=== PATIENT | male | born 1950 | race Caucasian/White ===

== ENCOUNTER 2017-07-27 03:12 | Inpatient (IN) | payer MEDICARE, MEDICAID ==
[2017-07-27] VITALS (8 sets, daily range): BP systolic 114–154; BP diastolic 78–93
[~2017-07-27] VITALS: Ht 180.3 cm; Wt 77.1 kg
[2017-07-27] MEDS ORDERED: PLAVIX75 MG ORAL (03:33)
[2017-07-27] MEDS ORDERED: METOPROLOL TART25 MG ORAL (03:33)
[2017-07-27] MEDS ORDERED: TYLENOL650 MG/20. ORAL ×2 (03:33)
[2017-07-27] MEDS ORDERED: TRAZODONE HCL150 MG ORAL (03:33)
[2017-07-27] MEDS ORDERED: WELLBUTRIN XL150 M3 ORAL (03:33)
[2017-07-27] MEDS ORDERED: DEPAKOTE250 MG PO (03:33)
[2017-07-27] MEDS ORDERED: RISPERIDONE2 MG/2 ML PO (03:33)
[2017-07-27] MEDS ORDERED: PANTOPRAZOLE SO40 MG ORAL (03:33)
[2017-07-27] MEDS ORDERED: AMLODIPINE BESYL5 MG ORAL (03:33)
[2017-07-27] MEDS ORDERED: ARICEPT10 MG ORAL (03:33)
[2017-07-27] MEDS ORDERED: FUROSEMIDE20 M1 ORAL (03:33)
[2017-07-27] MEDS ORDERED: COLACE250 MG ORAL (03:33)
[2017-07-27 04:02] LABS: BASOPHILS % (AUTO) 1.1 % (0.0-2.0); EOSINOPHILS % (AUTO) 0.3 % (0.0-3.0); LYMPHOCYTES % (AUTO) 35.9 % (20.0-45.0); MEAN CORPUSCULAR HGB CONC 32.6 G/DL (32.0-36.0); MEAN CORPUSCULAR VOLUME 92 FL (80-99); MEAN PLATELET VOLUME 6.9 FL (6.5-10.1); NEUTROPHILS % (AUTO) 45.7 % (45.0-75.0); PLATELET COUNT 168 K/UL (150-450); RED BLOOD COUNT 4.43 M/UL (4.70-6.10); RED CELL DISTRIBUTION WIDTH 12.6 % (11.6-14.8); WHITE BLOOD COUNT 4.8 K/UL (4.8-10.8)
[2017-07-27 04:12] LABS: ANION GAP 7 mmol/L (5-15); CALCIUM 8.6 MG/DL (8.5-10.1); CARBON DIOXIDE 31 MMOL/L (21-32); CHLORIDE 104 MMOL/L (98-107); CREATININE 0.9 MG/DL (0.55-1.30); GLOMERULAR FILTRATION RATE > 60 mL/min (>60); POTASSIUM 3.5 MMOL/L (3.5-5.1); SODIUM 142 MMOL/L (136-145)
[2017-07-27 04:22] LABS: APPEARANCE,URINE CLEAR; KETONES,URINE NEGATIVE (NEGATIVE); LEUKOCYTE ESTERASE ,URINE NEGATIVE (NEGATIVE); NITRITE,URINE NEGATIVE (NEGATIVE); PH,URINE 6.5 (4.5-8.0); PROTEIN,URINE NEGATIVE (NEGATIVE); UROBILINOGEN,URINE NORMAL MG/DL (0.0-1.0)
[2017-07-27 04:27] LABS: ALANINE AMINOTRANSFERASE 24 U/L (12-78); ALBUMIN/GLOBULIN RATIO 0.7 (1.0-2.7); ASPARTATE AMINO TRANSFERASE 27 U/L (15-37); CKMB 1.3 NG/ML (0.0-3.6); TOTAL PROTEIN 7.3 G/DL (6.4-8.2)
--- NOTE | 2017-07-27 04:38 | Emergency Room Report ---
History of Present Illness General Chief Complaint: Generalized Weakness Source: EMS Present Illness HPI 67-year-old male sent [facility] for evaluation for generalized weakness , cough and fever Was given tylenol prior to arrival Patient denies known medical problems however review of paperwork indicates history of COPD, heart failure and high blood pressure, schizophrenia, dementia Patient otherwise not providing much history of present illness Allergies: Coded Allergies: No Known Allergies (Unverified , 07/27/17) Patient History Past Medical History: HTN, CHF, COPD Past Surgical History: unable to obtain Pertinent Family History: unable to obtain Social History: Denies: smoking, alcohol use, drug use Immunizations: UTD Reviewed Nursing Documentation: PMH: Agreed, PSxH: Agreed Review of Systems All Other Systems: limited - Dementia Physical Exam Vital Signs Date Time Temp Pulse Resp B/P (MAP) Pulse Ox O2 Delivery O2 Flow Rate FiO2 07/27/17 03:13 98.2 64 20 129/84 97 Nasal Cannula 3.0 Sp02 EP Interpretation: reviewed, normal General Appearance: normal inspection, well appearing, no apparent distress, alert, GCS 15, non-toxic, other - Calm cooperative, well appering, Chronically Ill Head: normocephalic, atraumatic Eyes: bilateral eye PERRL, bilateral eye EOMI ENT: normal ENT inspection, hearing grossly normal, normal pharynx, no angioedema, normal voice, TMs + canals normal, uvula midline, moist mucus membranes Neck: normal inspection, full range of motion, supple, thyroid normal, no meningismus, no bony tend Respiratory: normal inspection, lungs clear, normal breath sounds, no rhonchi, no respiratory distress, no retraction, no accessory muscle use, no wheezing, speaking full sentences Cardiovascular #1: regular rate, rhythm, no edema, no JVD, normal capillary refill Gastrointestinal: normal inspection, normal bowel sounds, non tender, soft, no mass, no peritonitis, non-distended, no guarding, no hernia, no pulsatile mass Genitourinary: no CVA tenderness Musculoskeletal: normal inspection, back normal, normal range of motion, no calf tenderness, pelvis stable, Dev's Sign negative Neurologic: normal inspection, alert, responsive, 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 I attest that this information is true, accurate and complete to the best of my knowledge. I understand that any falsification, omission, or concealment of material fact may subject me to administrative, civil, or criminal liability. This patient warrants hospital admission for extreme of age and has a condition that cannot be treated as outpatient. Diagnostic Impression: Primary Impression: Episode of generalized weakness ER Course Patient afebrile here No leuks on labs CXR and UA negative for infection No metabolic abnormalities ECG shows RBBB, troponin WNL Not septic appearing Med/surg admission Dr Romano for Dr Das at 437am EKG Diagnostic Results Rate: normal Rhythm: NSR ST Segments: no acute changes ASA given to the pt in ED: No Chest X-Ray Diagnostic Results Chest X-Ray Diagnostic Results : Chest X-Ray Ordered: Yes # of Views/Limited/Complete: 1 View Indication: Other - Weakness EP Interpretation: Yes Interpretation: no consolidation, no effusion, no pneumothorax, no acute cardiopulmonary disease Impression: No acute disease Electronically Signed by: Dr Lucita Espitia MD Last Vital Signs Date Time Temp Pulse Resp B/P (MAP) Pulse Ox O2 Delivery O2 Flow Rate FiO2 07/27/17 03:31 98.2 64 20 129/84 97 Nasal Cannula 3.0 Status: improved Disposition: ADMITTED INPATIENT LUCITA ESPITIA M.D. Jul 27, 2017 04:38
[2017-07-27] MEDS ORDERED: Metoprolol 25mg tab ORAL SCH (09:00)
[2017-07-27] MEDS: Benztropine 1mg tab ORAL SCH ×2 (10:14→18:21)
[2017-07-27] MEDS: Donepezil 10mg tab ORAL SCH (10:15)
[2017-07-27] MEDS: Docusate 100mg cap ORAL SCH (10:16)
[2017-07-27] MEDS: Depakote 500mg tab ORAL SCH ×2 (10:17→20:26)
--- NOTE | 2017-07-27 12:31 | Diagnostic Imaging Report ---
Indication: Reason For Exam: WEAK Technique: One view of the chest Comparison: none Findings: Left hemidiaphragm is elevated and there is some atelectasis of the left lung base. The lungs and pleural spaces are otherwise clear. Heart is borderline enlarged Impression: Borderline cardiomegaly Elevated left hemidiaphragm No definite acute process otherwise
[2017-07-27] MEDS: cefTRIAXone 1 GM in D5W 55 ML IVPB SCH (13:02)
[2017-07-27] MEDS: BuPROPion 75mg Tab ORAL SCH ×2 (13:05→18:22)
[2017-07-27] MEDS: Metoprolol 25mg tab ORAL SCH ×2 (13:05→23:00)
--- NOTE | 2017-07-27 18:30 | History and Physical Report ---
DATE OF ADMISSION: 07/27/2017 CHIEF COMPLAINT: Fever, toxic and metabolic encephalopathy, dehydration. HISTORY OF PRESENT ILLNESS: This is a 67-year-old male. He has history of COPD, hypertension, seizure disorder, and schizophrenia, who was transferred from a shelter facility with complaints of generalized weakness and fever. The patient states that he has mild sore throat, subjective fevers and chills with mild nonproductive cough. On evaluation in the emergency room, the patient was febrile. His chest x-ray was reported as clear, white count was normal, but he was noted to be dehydrated and weak. He is now admitted for further evaluation and care. PAST MEDICAL HISTORY: As above. PAST SURGICAL HISTORY: None. CURRENT MEDICATIONS: Reconciled and reviewed. ALLERGIES: None. FAMILY HISTORY: None. SOCIAL HISTORY: Negative for alcohol or drugs. The patient is a previous smoker. REVIEW OF SYSTEMS: GENERAL: Positive for fevers and chills. No night sweats. HEENT: No headaches or visual changes. CARDIOPULMONARY: No chest pain. Mild shortness of breath. GASTROINTESTINAL: No nausea or vomiting. GENITOURINARY: No urgency or frequency. MUSCULOSKELETAL: No joint pain or swelling. NEUROLOGIC: Positive history of seizures. PHYSICAL EXAMINATION: VITAL SIGNS: Temperature 98, pulse 64, respirations 20, and blood pressure 129/84. GENERAL: The patient is a well-developed male, in no apparent distress. He is awake and alert. HEENT: His pupils are equal, round, and reactive to light. Oropharynx clear. NECK: Supple. HEART: Regular rate and rhythm. LUNGS: Clear. ABDOMEN: Soft, nontender, nondistended. EXTREMITIES: Without clubbing, cyanosis, or edema. LABORATORY DATA: Sodium 141 and potassium 3.5. Troponin 0.028. White count 5 and hemoglobin 13. UA was clear. ASSESSMENT: This is a pleasant male admitted with complaints of generalized weakness, dehydration, encephalopathy, and hypoxemia, etiology of which is unclear. The patient will be ruled out for influenza. PLAN: We will repeat chest x-ray to rule out pneumonia. Consider empiric IV antibiotics. Continue outpatient psych regimen. Breathing treatments as needed. Supplemental oxygen as needed. We will check venous duplex of the legs. Mack Romano M.D. DR: KATHERINE JOB#: [id number] CC:
[2017-07-27] MEDS: TraZODone 50mg tab ORAL SCH (20:27)
[2017-07-28] VITALS: BP 124/73
[2017-07-28 04:00] VITALS: BP 135/95
[2017-07-28 08:00] VITALS: BP 128/80
[2017-07-28] MEDS: BuPROPion 75mg Tab ORAL SCH ×2 (09:00→18:18)
[2017-07-28] MEDS: Depakote 500mg tab ORAL SCH ×2 (09:00→20:28)
[2017-07-28] MEDS: Donepezil 10mg tab ORAL SCH (10:14)
[2017-07-28] MEDS: Docusate 100mg cap ORAL SCH (10:16)
[2017-07-28] MEDS: Benztropine 1mg tab ORAL SCH ×2 (10:17→18:18)
--- NOTE | 2017-07-28 10:45 | General Progress Note ---
Assessment/Plan Problem List: (1) Failure to thrive SNOMED: 14936591 (2) Toxic metabolic encephalopathy ICD Codes: G92 - Toxic encephalopathy SNOMED: 668670167 (3) Seizure ICD Codes: R56.9 - Unspecified convulsions SNOMED: 48432190 (4) Episode of generalized weakness ICD Codes: R53.1 - Weakness SNOMED: 97660734 Status: stable, progressing Assessment/Plan cont ivf abx repeat cxr psych eval regarding meds pt/ot Subjective ROS Limited/Unobtainable: No Constitutional: Reports: malaise, weakness HEENT: Reports: no symptoms Cardiovascular: Reports: no symptoms Respiratory: Reports: cough Gastrointestinal/Abdominal: Reports: no symptoms Genitourinary: Reports: no symptoms Neurologic/Psychiatric: Reports: pre-existing deficit, seizure Endocrine: Reports: no symptoms Hematologic/Lymphatic: Reports: no symptoms Allergies: Coded Allergies: No Known Allergies (Unverified , 07/27/17) All Systems: reviewed and negative except above Subjective no complaints. weak. no cp/sob. no fevers. Objective Last 24 Hour Vital Signs Date Time Temp Pulse Resp B/P (MAP) Pulse Ox O2 Delivery O2 Flow Rate FiO2 07/28/17 10:16 93 119/81 07/28/17 08:00 97.5 85 19 128/80 96 07/28/17 04:00 97.8 89 22 135/95 95 Nasal Cannula 2.0 07/28/17 00:00 96.9 54 17 124/73 96 Nasal Cannula 2.0 07/27/17 23:00 54 124/73 07/27/17 20:00 98.5 108 18 154/93 95 Nasal Cannula 2.0 07/27/17 16:00 98.4 68 19 114/78 98 07/27/17 13:05 63 115/81 07/27/17 12:00 98.3 63 19 115/81 97 Intake and Output 07/27/17 07/28/17 19:00 07:00 Intake Total 480 ml 920 ml Balance 480 ml 920 ml Intake Oral 480 ml 320 ml IV Total 600 ml # Voids 5 1 Laboratory Tests 07/28/17 09:45: Valproic Acid (Depakene) Level 59 Height (Feet): 5 Height (Inches): 11.00 Weight (Pounds): 170 General Appearance: WD/WN, alert Neck: supple Cardiovascular: regular rhythm Respiratory/Chest: chest wall non-tender, lungs clear, normal breath sounds Abdomen: normal bowel sounds, non tender, soft, no organomegaly Edema: no edema noted Arm (L), no edema noted Arm (R), no edema noted Leg (L), no edema noted Leg (R), no edema noted Pedal (L), no edema noted Pedal (R), no edema noted Generalized Neurologic: alert MYA STOKES Jul 28, 2017 10:45
[2017-07-28] MEDS: cefTRIAXone 1 GM in D5W 55 ML IVPB SCH (11:15)
[2017-07-28] MEDS: Metoprolol 25mg tab ORAL SCH ×2 (11:20→22:35)
--- NOTE | 2017-07-28 11:23 | Wound Care Consultation ---
Wound Assessment Wound Assessment : Wound Number: 1 Wound Present on Admission: Yes New Wound: No Status Change of Wound: No Wound Location Body Site Modif: right, mid Wound Location Body Site: back Wound Type: traumatic injury Goran Test: Does not Goran Traumatic Injury Wounds: Abrasion Wound Length: 3.5 Wound Width: 3.5 Wound Depth: less than 0.1 Percent of Wound Kountze/Red: 100 Wound Drainage Amount: None Wound Drainage Odor: None/Absent Tissue Surrounding Wound: Erythemic Wound General Appearance: Reddened, Open to air Wound Comment #1 Right mid back Resolving abrasion. Leave are open to air. Recommendation -Assess and f/u accordingly for any changes -Optimize nutrition -Keep clean and dry TAMIKO GODFREY RN Jul 28, 2017 11:23
[2017-07-28 11:39] VITALS: BP 122/85
[2017-07-28] MEDS ORDERED: Albuterol/Ipratropium 3ml neb HHN PRN (12:00)
[2017-07-28] MEDS: guaiFENesin 100mg/5ml Liq ud ORAL PRN (13:15)
[2017-07-28 16:39] VITALS: BP 128/80
[2017-07-28 20:00] VITALS: BP 141/89
[2017-07-28] MEDS: TraZODone 50mg tab ORAL SCH (20:26)
--- NOTE | 2017-07-28 22:56 | Consultation ---
History of Present Illness General Date patient seen: Jul 27, 2017 Chief Complaint: Generalized Weakness Present Illness HPI 67-year-old male with history of COPD, hypertension, seizure disorder, and schizophrenia, who was transferred from a retirement facility with complaints of generalized weakness and fever. the pt is currently stable no psychotic sxs. anxiety and mild sadness no si.hi Allergies: Coded Allergies: No Known Allergies (Unverified , 07/27/17) Medication History Scheduled Amlodipine Besylate* (Amlodipine Besylate*), 5 MG ORAL DAILY, (Reported) Bupropion HCl (Bupropion Xl), 150 MG ORAL DAILY, (Reported) Clopidogrel Bisulfate* (Plavix*), 75 MG ORAL DAILY, (Reported) Divalproex Sodium* (Depakote*), 250 MG PO TID, (Reported) Docusate Sodium (Docusate Sodium), 250 MG ORAL DAILY, (Reported) Donepezil Hcl* (Aricept*), 20 MG ORAL DAILY, (Reported) Furosemide* (Lasix*), 20 MG ORAL DAILY, (Reported) Metoprolol Tartrate* (Metoprolol Tartrate*), 25 MG ORAL EVERY 12 HOURS, ( Reported) Pantoprazole* (Pantoprazole*), 40 MG ORAL DAILY, (Reported) Trazodone* (Trazodone*), 150 MG ORAL BEDTIME, (Reported) Scheduled PRN Acetaminophen (Acetaminophen), 650 MG ORAL Q6H PRN for Prn Headache/Temp > 101, (Reported) Acetaminophen (Acetaminophen), 650 MG ORAL Q6HR PRN for For Pain, (Reported) Miscellaneous Medications Risperidone (Risperidone), 2 MG PO, (Reported) Patient History History Provided By: Patient, Medical Record, PMD Healthcare decision maker Resuscitation status Full Code Advanced Directive on File No Past Medical/Surgical History Past Medical/Surgical History: (1) Failure to thrive (2) Seizure (3) Episode of generalized weakness (4) Toxic metabolic encephalopathy Review of Systems Psychiatric: Reports: prior hx, anxiety, depressed feelings Physical Exam General Appearance: WD/WN, no apparent distress, alert Neurologic: alert, oriented x 3, responsive, depressed affect Last 24 Hour Vital Signs Date Time Temp Pulse Resp B/P (MAP) Pulse Ox O2 Delivery O2 Flow Rate FiO2 07/28/17 22:35 84 141/89 07/28/17 20:00 97.7 84 19 141/89 97 07/28/17 16:39 97.3 94 20 128/80 97 Room Air 07/28/17 11:39 97.8 73 20 122/85 96 Nasal Cannula 2.0 07/28/17 11:36 97.8 73 20 96 Nasal Cannula 2.0 07/28/17 11:20 73 122/85 07/28/17 10:16 93 119/81 07/28/17 08:00 97.5 85 19 128/80 96 07/28/17 04:00 97.8 89 22 135/95 95 Nasal Cannula 2.0 07/28/17 00:00 96.9 54 17 124/73 96 Nasal Cannula 2.0 07/27/17 23:00 54 124/73 Intake and Output 07/27/17 07/28/17 19:00 07:00 Intake Total 480 ml 920 ml Balance 480 ml 920 ml Intake Oral 480 ml 320 ml IV Total 600 ml # Voids 5 1 Laboratory Tests Test 07/28/17 09:45 Valproic Acid (Depakene) Level 59 MCG/ML (50-100) Microbiology Date/Time Source Procedure Growth Status 07/28/17 00:00 Nasal Nares Influenza Types A,B Antigen (AJ) - Final Complete Height (Feet): 5 Height (Inches): 11.00 Weight (Pounds): 170 Medications Current Medications Medications (Trade) Dose Ordered Sig/Vahid Route PRN Reason Start Time Stop Time Status Last Admin Dose Admin Acetaminophen (Tylenol) 650 mg Q4H PRN ORAL Mild Pain (Pain Scale 1-3) 07/27/17 06:30 08/26/17 06:29 Acetaminophen (Tylenol) 650 mg Q4H PRN ORAL fever 07/27/17 06:30 08/26/17 06:29 Albuterol/ Ipratropium (Albuterol/ Ipratropium) 3 ml Q4H PRN HHN Shortness of Breath 07/28/17 12:00 08/02/17 11:59 Amlodipine Besylate (Norvasc) 5 mg DAILY ORAL 07/27/17 09:00 08/26/17 08:59 07/28/17 10:16 Benztropine Mesylate (Cogentin) 2 mg BID ORAL 07/27/17 09:00 08/26/17 08:59 07/28/17 18:18 Bupropion HCl (Wellbutrin) 75 mg BID ORAL 07/27/17 09:00 08/26/17 08:59 07/28/17 18:18 Ceftriaxone Sodium 1 gm/ Dextrose 55 ml @ 110 mls/hr Q24H IVPB 07/27/17 11:30 08/03/17 11:29 07/28/17 11:15 Clopidogrel Bisulfate (Plavix) 75 mg DAILY ORAL 07/27/17 09:00 08/26/17 08:59 07/28/17 10:14 Dextrose (Dextrose 50%) STAT PRN IV Hypoglycemia 07/27/17 06:30 08/26/17 06:29 Dextrose/ Electrolytes 1,000 ml @ 50 mls/hr Q20H IV 07/27/17 11:30 08/26/17 11:29 07/28/17 10:13 Divalproex Sodium (Depakote) 500 mg Q12HR ORAL 07/27/17 09:00 08/26/17 08:59 07/28/17 20:28 Docusate Sodium (Colace) 250 mg DAILY ORAL 07/27/17 09:00 08/26/17 08:59 07/28/17 10:16 Donepezil HCl (Aricept) 20 mg DAILY ORAL 07/27/17 09:00 08/26/17 08:59 07/28/17 10:14 Furosemide (Lasix) 20 mg DAILY ORAL 07/27/17 09:00 08/26/17 08:59 07/28/17 10:14 Guaifenesin (Robitussin) 100 mg Q4H PRN ORAL For Cough 07/28/17 12:00 08/27/17 11:59 07/28/17 13:15 Metoprolol Tartrate (Lopressor) 25 mg Q12HR@1100,2300 ORAL 07/27/17 11:00 08/26/17 10:59 07/28/17 22:35 Pantoprazole (Protonix) 40 mg ACBREAKFAST ORAL 07/29/17 06:30 08/26/17 08:59 Risperidone (RisperDAL) 2 mg DAILY ORAL 07/27/17 09:00 08/26/17 08:59 07/27/17 10:15 Risperidone (RisperDAL) 3 mg BEDTIME ORAL 07/27/17 21:00 08/26/17 20:59 07/28/17 20:27 Trazodone HCl (Desyrel) 150 mg BEDTIME ORAL 07/27/17 21:00 08/26/17 20:59 07/28/17 20:26 Assessment/Plan Status: stable, progressing Assessment/Plan schizophrenia mdd -Wellbutrin -trazodone -Risperdal Jordin Pineda M.D. Jul 28, 2017 22:56
[2017-07-29] VITALS: BP 134/88
--- NOTE | 2017-07-29 00:24 | Cardiology Report ---
APPROVED REPORT EKG Measurement Heart [id number] VA [id number] Normal sinus rhythm Right bundle branch block Septal infarct, age undetermined Abnormal ECG
[2017-07-29 04:00] VITALS: BP 123/78
[2017-07-29 07:37] LABS: MEAN CORPUSCULAR HEMOGLOBIN 30.8 PG (27.0-31.0); MEAN CORPUSCULAR VOLUME 93 FL (80-99); MEAN PLATELET VOLUME 7.3 FL (6.5-10.1); PLATELET COUNT 146 K/UL (150-450); RED BLOOD COUNT 4.04 M/UL (4.70-6.10); RED CELL DISTRIBUTION WIDTH 12.9 % (11.6-14.8); WHITE BLOOD COUNT 3.2 K/UL (4.8-10.8)
[2017-07-29 08:00] VITALS: BP 120/84
[2017-07-29 08:02] LABS: ALANINE AMINOTRANSFERASE 24 U/L (12-78); ALBUMIN/GLOBULIN RATIO 0.7 (1.0-2.7); ANION GAP 2 mmol/L (5-15); ASPARTATE AMINO TRANSFERASE 29 U/L (15-37); CALCIUM 7.6 MG/DL (8.5-10.1); CARBON DIOXIDE 35 MMOL/L (21-32); CHLORIDE 107 MMOL/L (98-107); CREATININE 0.9 MG/DL (0.55-1.30); GLOMERULAR FILTRATION RATE > 60 mL/min (>60); POTASSIUM 4.2 MMOL/L (3.5-5.1); SODIUM 144 MMOL/L (136-145); TOTAL PROTEIN 6.7 G/DL (6.4-8.2); VALPROIC ACID 46 MCG/ML (50-100)
[2017-07-29] MEDS: Docusate 100mg cap ORAL SCH ×2 (09:00→09:47)
--- NOTE | 2017-07-29 09:40 | General Progress Note ---
Assessment/Plan Problem List: (1) Failure to thrive SNOMED: 63734344 (2) Toxic metabolic encephalopathy ICD Codes: G92 - Toxic encephalopathy SNOMED: 583425528 (3) Seizure ICD Codes: R56.9 - Unspecified convulsions SNOMED: 01833683 (4) Episode of generalized weakness ICD Codes: R53.1 - Weakness SNOMED: 68961286 Status: stable Assessment/Plan cont ivf abx repeat cxr psych eval regarding meds pt/ot dc planning tomorrow if continued improvement Subjective ROS Limited/Unobtainable: No Constitutional: Reports: malaise, weakness HEENT: Reports: no symptoms Cardiovascular: Reports: no symptoms Respiratory: Reports: cough Gastrointestinal/Abdominal: Reports: no symptoms Genitourinary: Reports: no symptoms Neurologic/Psychiatric: Reports: no symptoms Endocrine: Reports: no symptoms Hematologic/Lymphatic: Reports: no symptoms Allergies: Coded Allergies: No Known Allergies (Unverified , 07/27/17) All Systems: reviewed and negative except above Subjective no complaints. feel "better." no chest pain no sob. . Objective Last 24 Hour Vital Signs Date Time Temp Pulse Resp B/P (MAP) Pulse Ox O2 Delivery O2 Flow Rate FiO2 07/29/17 08:00 98.1 92 20 120/84 93 Room Air 07/29/17 04:00 98.2 57 20 123/78 96 07/29/17 00:00 98.2 86 18 134/88 96 07/28/17 22:35 84 141/89 07/28/17 20:00 97.7 84 19 141/89 97 07/28/17 16:39 97.3 94 20 128/80 97 Room Air 07/28/17 11:39 97.8 73 20 122/85 96 Nasal Cannula 2.0 07/28/17 11:36 97.8 73 20 96 Nasal Cannula 2.0 07/28/17 11:20 73 122/85 07/28/17 10:16 93 119/81 Intake and Output 07/28/17 07/29/17 19:00 07:00 Intake Total 690 ml 620 ml Output Total 325 ml Balance 690 ml 295 ml Intake Oral 690 ml 120 ml IV Total 500 ml Output Urine Total 325 ml # Voids 3 2 # Bowel Movements 1 Laboratory Tests 07/28/17 09:45: Valproic Acid (Depakene) Level 59 07/29/17 06:00: Valproic Acid (Depakene) Level 46L, White Blood Count 3.2L, Red Blood Count 4.04L, Hemoglobin 12.4L, Hematocrit 37.7L, Mean Corpuscular Volume 93, Mean Corpuscular Hemoglobin 30.8, Mean Corpuscular Hemoglobin Concent 33.0, Red Cell Distribution Width 12.9, Platelet Count 146L, Mean Platelet Volume 7.3, Neutrophils (%) (Auto) , Lymphocytes (%) (Auto) , Monocytes (%) (Auto) , Eosinophils (%) (Auto) , Basophils (%) (Auto) , Neutrophils % (Manual) [Pending] , Lymphocytes % (Manual) [Pending], Platelet Estimate [Pending], Platelet Morphology [Pending], Sodium Level 144, Potassium Level 4.2, Chloride Level 107 , Carbon Dioxide Level 35H, Anion Gap 2L, Blood Urea Nitrogen 14, Creatinine 0.9 , Estimat Glomerular Filtration Rate > 60, Glucose Level 89, Calcium Level 7.6L , Total Bilirubin 0.2, Aspartate Amino Transf (AST/SGOT) 29, Alanine Aminotransferase (ALT/SGPT) 24, Alkaline Phosphatase 62, Total Protein 6.7, Albumin 2.7L, Globulin 4.0, Albumin/Globulin Ratio 0.7L Height (Feet): 5 Height (Inches): 11.00 Weight (Pounds): 170 General Appearance: WD/WN, alert Neck: supple Cardiovascular: normal rate, regular rhythm Respiratory/Chest: chest wall non-tender, lungs clear, normal breath sounds Abdomen: normal bowel sounds, non tender, soft, no organomegaly Edema: no edema noted Arm (L), no edema noted Arm (R), no edema noted Leg (L), no edema noted Leg (R), no edema noted Pedal (L), no edema noted Pedal (R), no edema noted Generalized MYA STOKES Jul 29, 2017 09:39
[2017-07-29] MEDS: Donepezil 10mg tab ORAL SCH (09:46)
[2017-07-29] MEDS: Benztropine 1mg tab ORAL SCH ×2 (09:47→18:00)
[2017-07-29] MEDS: Depakote 500mg tab ORAL SCH ×2 (09:48→22:03)
[2017-07-29] MEDS: BuPROPion 75mg Tab ORAL SCH ×2 (09:49→18:00)
[2017-07-29] MEDS: guaiFENesin 100mg/5ml Liq ud ORAL PRN (09:59)
[2017-07-29 10:24] LABS: BAND NEUTROPHILS % (MANUAL) 0 % (0-8); BASOPHILS % (MANUAL) 0 % (0-2); EOSINOPHILS % (MANUAL) 4 % (0-3); LYMPHOCYTES % (MANUAL) 50 % (20-45); NEUTROPHILS % (MANUAL) 33 % (45-75); PLATELET ESTIMATE DECREASED; PLATELET MORPHOLOGY NORMAL; TOTAL CELLS COUNTED 100
[2017-07-29 12:00] VITALS: BP 118/64
[2017-07-29] MEDS: cefTRIAXone 1 GM in D5W 55 ML IVPB SCH (12:12)
[2017-07-29] MEDS: Metoprolol 25mg tab ORAL SCH ×2 (12:13→23:50)
[2017-07-29 17:34] VITALS: BP 138/81
[2017-07-29 20:00] VITALS: BP 129/77
[2017-07-29] MEDS: TraZODone 50mg tab ORAL SCH (22:03)
[2017-07-30] VITALS: BP 136/91
--- NOTE | 2017-07-30 03:15 | Progress Note ---
DATE: 07/29/2017 SUBJECTIVE: The patient continues to have decreased appetite. He is doing better. He is calm and cooperative. No behavioral issues. Denies any depressive symptoms. Compliant with medication. MENTAL STATUS EXAMINATION: The patient is alert and oriented times self, place, and situation he is in. Mood is dysphoric. Affect is constricted, congruent with mood. Thought process is linear. Thought content, no suicidal or homicidal ideation. Insight and judgment is fair. ASSESSMENT: 1. Major depressive disorder. 2. Schizophrenia, by history. 3. Encephalopathy, resolved. PLAN: 1. We will continue the current medication. 2. Provide the patient with supportive therapy and reality orientation. Jordin Pineda M.D. DR: BOB JOB#: [id number] CC:
[2017-07-30 04:00] VITALS: BP 130/78
[2017-07-30 08:00] VITALS: BP 152/91
[2017-07-30] MEDS: Depakote 500mg tab ORAL SCH (08:41)
[2017-07-30] MEDS: BuPROPion 75mg Tab ORAL SCH ×2 (08:42→17:22)
[2017-07-30] MEDS: Benztropine 1mg tab ORAL SCH ×2 (08:42→17:22)
[2017-07-30] MEDS: Donepezil 10mg tab ORAL SCH (08:44)
[2017-07-30] MEDS: Docusate 250mg cap ORAL SCH ×2 (08:49→08:50)
[2017-07-30] MEDS ORDERED: BUPROPION ORAL (09:11)
[2017-07-30] MEDS ORDERED: RISPERDAL2 MG ORAL ×2 (09:11)
[2017-07-30] MEDS ORDERED: DIVALPROEX SOD500 MG ORAL (09:11)
[2017-07-30] MEDS: cefTRIAXone 1 GM in D5W 55 ML IVPB SCH (11:06)
[2017-07-30] MEDS: Metoprolol 25mg tab ORAL SCH (11:07)
[2017-07-30] MEDS: guaiFENesin 100mg/5ml Liq ud ORAL PRN (11:12)
[2017-07-30 12:00] VITALS: BP 152/91
[2017-07-30 16:00] VITALS: BP 118/83
--- NOTE | 2017-07-31 03:00 | Discharge Summary ---
DATE OF ADMISSION: 07/27/2017 DATE OF DISCHARGE: 07/30/2017 ADMISSION DIAGNOSES: 1. Failure to thrive. 2. Dehydration. 3. Encephalopathy. DISCHARGE DIAGNOSES: 1. Failure to thrive. 2. Dehydration. 3. Encephalopathy. BRIEF HISTORY: The patient is a pleasant male admitted with complaints of altered mental status and failure to thrive. His initial workup was unremarkable, but he was noted to be more confused and lethargic. His x-ray was clear. He was initially treated with antibiotics, but cultures returned back negative. A psychiatric consultation was obtained. His psychiatric medications were adjusted. On discharge, he was doing well. The patient will be discharged back to the assisted facility. DISCHARGE MEDICATIONS: Please see discharge medication list for discharge medications. DIET: Regular diet. ACTIVITY: Ad-solitario. FOLLOWUP: The patient will follow up by his PMD in one to two days. Mack Romano M.D. DR: JOSE ANTONIO JOB#: [id number] CC:
--- NOTE | 2017-07-31 22:52 | General Progress Note ---
Assessment/Plan Status: stable Subjective Date patient seen: Jul 30, 2017 Neurologic/Psychiatric: Reports: anxiety, depressed Allergies: Coded Allergies: No Known Allergies (Unverified , 07/27/17) Objective Intake and Output 07/30/17 07/31/17 19:00 07:00 Intake Total 1080 ml Balance 1080 ml Intake Oral 750 ml IV Total 330 ml # Voids 2 # Bowel Movements 1 Height (Feet): 5 Height (Inches): 11.00 Weight (Pounds): 170 General Appearance: no apparent distress, alert Neurologic: alert, oriented x 3, responsive Jordin Pineda M.D. Jul 31, 2017 22:52
--- NOTE | 2017-08-03 10:49 | Diagnostic Imaging Report ---
APPROVED REPORT CPT Code: 58562 Present Symptoms Shortness of breath BILATERAL LOWER EXTREMITY VENOUS DUPLEX: Imaging reveals a patent deep venous system bilaterally. There is no evidence of thrombus within the femoral, popliteal or tibial segments. The greater saphenous veins are also within normal limits. Doppler indicates normal spontaneous flow within these segments.
== END 2017-07-30 17:30 | DRG 640 ==
LOC: EDBD 03:12 → EMR 03:40 → 3E 04:44 → EDBEDREQSVC 05:05 → EDBEDREQ 05:05 → 3E 12:44
DX: E86.0 Dehydration (principal); G92 Toxic encephalopathy; R56.9 Unspecified convulsions; J44.9 Chronic obstructive pulmonary disease, unspecified; F20.9 Schizophrenia, unspecified; R53.1 Weakness; R62.7 Adult failure to thrive; I10 Essential (primary) hypertension; F32.9 Major depressive disorder, single episode, unspecified
CPT/HCPCS: 36415; 71010; 80053; 80164; 81003; 82550; 82553; 83880; 84484; 85007; 85025; 86710; 87081; 93005; 93970; 94664; 99285